=== PATIENT | male | born 1995 | race American Indian/Alaskan Native ===

== ENCOUNTER 2017-04-07 16:06 | Emergency (ER) | payer SELFPAY ==
[~2017-04-07] VITALS: Ht 182.9 cm; Wt 75.0 kg
[2017-04-07 16:12] VITALS: BP 111/75; PULSE 62; RESP 16; TEMP 100.1; TEMP 98.2; O2SAT 98; O2SAT 99
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
[2017-04-07] MEDS ORDERED: IBUPROFEN 600 MG TAB PO ONE (17:45)
[2017-04-07] MEDS ORDERED: CEPHALEXIN MONOHYDRATE 500 MG CAP PO ONE (17:45)
[2017-04-07] MEDS ORDERED: CEPH-460 PO (17:52)
== END 2017-04-07 18:06 | disposition home or self-care (01) ==
LOC: PHED 16:06
DX: S02.642A Fracture of ramus of left mandible, initial encounter for closed fracture (principal); S02.69XA Fracture of mandible of other specified site, initial encounter for closed fracture; Y04.2XXA Assault by strike against or bumped into by another person, initial encounter
CPT/HCPCS: 70450; 70486; 99284